=== PATIENT | male | born 1970 | race Caucasian/White ===

== ENCOUNTER 2019-10-14 01:16 | Emergency (ER) | payer OTHER ==
[~2019-10-14] VITALS: Ht 182.9 cm; Wt 95.3 kg
[~2019-10-14 01:16] MED LIST: AMOX500C2 PO; ASPI81CH43 PO; ATO40T PO; DIVA1TAB58 PO; DOCU100C8 PO; MET50T PO; MULTTAB99 GT; ZOLP10TA PO
[2019-10-14 01:43] VITALS: BP 128/84
[2019-10-14 02:31] LABS: Basophils # (auto) 0.2 uL; Basophils % (auto) 1.3 % (0.0-2.0); Eosinophils # (auto) 0.8 uL; Hematocrit 49.1 % (41.0-53.0); Hemoglobin 16.4 g/dL (13.5-17.5); Lymphocytes # (auto) 4.5 uL; Lymphocytes % (auto) 34.9 % (10.0-50.0); Mean Corpuscular Hemoglobin 28.1 pg (28.0-32.0); Mean Corpuscular Hgb Conc. 33.3 g/dL (32.0-36.0); Mean Corpuscular Volume 84.4 fL (80.0-100.0); Monocytes # (auto) 0.9 uL; Monocytes % (auto) 6.9 % (0.0-12.0); Neutrophils # (auto) 6.6 uL; Neutrophils % (auto) 50.9 % (37.0-80.0); Platelet Count (auto) 298 10^3/uL (140-450); Red Blood Cells 5.82 10^6/uL (4.5-5.90); Red Cell Distribution Width 16.9 % (11.8-14.3); White Blood Cell 12.9 10^3/uL (4.4-10.8)
[2019-10-14 02:50] LABS: Alanine Aminotransferase 74 U/L (16-61); Albumin 3.7 g/dL (3.4-5.0); Anion Gap 9 (5-15); Aspartate Aminotransferase 23 U/L (15-37); BUN/Creatinine Ratio 9.3; Blood Urea Nitrogen 11 mg/dL (7-18); Calcium 8.2 mg/dL (8.5-10.1); Carbon Dioxide 24 mmol/L (21-32); Chloride 108 mmol/L (98-107); GFR African American 84 mL/min; GFR Non-African American 70 mL/min; Glucose 97 mg/dL (74-106); Magnesium 1.8 mg/dL (1.6-2.6); Potassium 4.1 mmol/L (3.5-5.1); Sodium 141 mmol/L (136-145)
[2019-10-14 02:55] LABS: Alkaline Phosphatase 106 U/L (45-117); Bilirubin, Total 0.4 mg/dL (0.2-1.0); Total Protein 8.2 g/dL (6.4-8.2)
== END 2019-10-14 02:37 | disposition left against medical advice (07) ==
LOC: ER 01:17
DX: I24.9 Acute ischemic heart disease, unspecified (principal); Z53.21 Procedure and treatment not carried out due to patient leaving prior to being seen by health care provider
CPT/HCPCS: 36415; 71045; 80053; 83735; 83880; 84484; 85025; 93005